=== PATIENT | male | born 1990 ===

== ENCOUNTER 2023-05-29 10:45 | Outpatient (CLI) | payer OTHER ==
[~2023-05-29 10:45] MED LIST: ACID REDUCER20 M1 PO; ESOMEPRAZOLE MA40 MG PO; PEPCID AC20 MG PO; PROBIOTIC1 EAC4 PO
[2023-05-30] MEDS ORDERED: PEPCID AC20 MG PO (09:17)
[2023-05-30] MEDS ORDERED: PERCOCET 5-3251 EACH PO (09:17)
[2023-05-30] MEDS ORDERED: DICY20TA PO (09:18)
[2023-05-30] MEDS ORDERED: ZOFRAN8 MG PO (09:19)
== END 2023-05-29 10:51 | disposition home or self-care (01) ==
LOC: TOM 10:45
PROVIDERS: ATTEND Surgery
DX: R14.0 Abdominal distension (gaseous) (principal); R10.11 Right upper quadrant pain; R10.31 Right lower quadrant pain; K80.10 Calculus of gallbladder with chronic cholecystitis without obstruction

== ENCOUNTER 2023-05-30 05:20 | Day surgery (SDC) | payer OTHER ==
[~2023-05-30] VITALS: Ht 188 cm; Wt 136.1 kg
[2023-05-30] MEDS ORDERED: PEPCID AC20 MG PO (09:17)
[2023-05-30] MEDS ORDERED: PERCOCET 5-3251 EACH PO (09:17)
[2023-05-30] MEDS ORDERED: DICY20TA PO (09:18)
[2023-05-30] MEDS ORDERED: ZOFRAN8 MG PO (09:19)
== END 2023-05-30 13:50 | disposition home or self-care (01) ==
LOC: CIR.AMB 05:20
PROVIDERS: ATTEND Surgery
DX: K81.1 Chronic cholecystitis (principal); K82.4 Cholesterolosis of gallbladder; R14.0 Abdominal distension (gaseous); R10.11 Right upper quadrant pain; Z20.822 Contact with and (suspected) exposure to COVID-19; I10 Essential (primary) hypertension